=== PATIENT | female | born 2005 | race Caucasian/White ===

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

== ENCOUNTER 2025-03-24 13:57 | Outpatient (REF) | payer OTHER, SELFPAY | END 2025-03-24 13:58 | disposition home or self-care (01) | LOC: LBN 13:57 | PROVIDERS: PCP Nurse Practitioner Family; Visit Provider Advanced Practice Midwife | DX: N89.8 Other specified noninflammatory disorders of vagina (principal) | CPT/HCPCS: 87480; 87510; 87660 ==

== ENCOUNTER 2025-04-15 15:40 | Outpatient (CLI) | payer OTHER, SELFPAY ==
[2025-04-15 19:17] LABS: HCG Quant, Pregnancy 1685 mIU/mL (1.5-4.2)
== END 2025-04-15 15:41 | disposition home or self-care (01) ==
LOC: LBO 15:42
PROVIDERS: PCP Nurse Practitioner Family; Visit Provider Obstetrics & Gynecology
DX: O26.851 Spotting complicating pregnancy, first trimester (principal)
CPT/HCPCS: 36415; 84702

== ENCOUNTER 2025-04-19 11:49 | Outpatient (CLI) | payer OTHER, SELFPAY ==
[2025-04-19 11:13] LABS: HCG Quant, Pregnancy 143 mIU/mL (1.5-4.2)
== END 2025-04-19 11:50 | disposition home or self-care (01) ==
LOC: LBO 11:52
PROVIDERS: PCP Nurse Practitioner Family; Visit Provider Obstetrics & Gynecology
DX: O26.859 Spotting complicating pregnancy, unspecified trimester (principal)
CPT/HCPCS: 36415; 84702